=== PATIENT | female | born 1945 | race Caucasian/White ===

== ENCOUNTER 2019-02-03 14:22 | Emergency (ER) | payer MEDICARE, OTHER ==
[~2019-02-03] VITALS: Ht 162.6 cm; Wt 73.9 kg
[2019-02-03 15:00] VITALS: BP 139/59
[2019-02-03 15:01] VITALS: BP 139/59
--- NOTE | 2019-02-03 15:03 | NUR ---
ARRIVAL PATIENT ARRIVED TO [facility]BULATORY, C/O OF LEFT LEG SWELLING AND TENDERNESS, PATIENT STATES SHE JUST RECENTLY FLEW IN FROM [place] AND A [address], UNSURE TO IF SHE HAS A BLOOD CLOT, CAME TO THE ED FOR EVAL.
--- NOTE | 2019-02-03 15:12 | ER.PDOC ---
General Chief Complaint: Extremities Stated Complaint: POSSIBLE BLOOD CLOT Time seen by MD: 15:00 Source: patient, family History of Present Illness Initial Comments Pt with left leg red rounded area that appeared on Sunday, got worse as time went by, slightly better today Onset: last week Recent Injury: No Where: home Severity: mild Exacerbated By: walking movement Relieved By: nothing Allergies: Coded Allergies: Penicillins (Verified Allergy, Unknown, PREST[place], 02/03/19) Home Meds Unable to Obtain Active Prescriptions or Reported Meds Past Medical History Medical History: diabetes, GERD, high cholesterol, hypertension, other Surgical History: hysterectomy, other Social History Smoking: non-smoker Alcohol Use: none Drug Use: none Review of Systems Skin: see HPI All Other Systems: Reviewed and Negative Physical Exam General Appearance: Alert, No Apparent Distress Lower Extremity: nml inspection, non-tender, no pedal edema, tenderness, swelling (left medial aspect of leg with rounded area of redness and tenderness) Joint Exam: joints nml, nml ROM, nml gait/weight bearing Vascular: no vascular compromise, pulses full/equal Neuro/Psych: sensation nml, motor nml, oriented x3, CN's nml as tested, mood/affect nml Skin: color nml, warm/dry, no rash Back/Neck: nml inspection EENT: eyes inspection nml, ENT inspection nml, pharynx nml Respiratory: no resp distress, breath sounds nml CVS: reg rate & rhythm, heart sounds nml Abdomen: non-tender, no organomegaly, no bruit/mass Results/Orders Results/Orders Orders - JOSEPH ANDRE MD Cbc With Auto Diff (02/03/19 15:03) Comprehensive Metabolic Panel (02/03/19 15:03) Creatine Kinase (02/03/19 15:03) PT (02/03/19 15:03) Partial Thromboplastin Time. (02/03/19 15:03) Us Lt Vein U/L (02/03/19 15:03) Vital Signs Date Time Temp Pulse Resp B/P (MAP) Pulse Ox O2 Delivery O2 Flow Rate FiO2 02/03/19 15:01 98.0 75 18 139/59 (85) 98 Room Air 02/03/19 15:00 98.0 75 18 02/03/19 14:58 98.0 75 18 98 Room Air Laboratory Tests Test 02/03/19 15:14 White Blood Count 6.3 10^3/uL (4.5-11.0) Red Blood Count 4.64 10^6/uL (4.00-5.20) Hemoglobin 12.9 g/dL (12.0-15.0) Hematocrit 39.1 % (36.0-46.0) Mean Corpuscular Volume 84.3 fL (78-100) Mean Corpuscular Hemoglobin 27.8 pg (26-34) Mean Corpuscular Hemoglobin Concent 33.0 g/dL (33-37) Red Cell Distribution Width 14.9 % (11.5-14.5) H Platelet Count 298 10^3/uL (150-400) Mean Platelet Volume 7.8 fL (7.8-11.0) Neutrophils (%) (Auto) 65.2 % (41.0-85.0) Lymphocytes (%) (Auto) 23.2 % (24.0-44.0) L Monocytes (%) (Auto) 8.4 % (5.0-12.0) Neutrophils # (Auto) 4.1 10^3/uL (1.8-7.7) Lymphocytes # (Auto) 1.5 10^3/uL (1.0-4.8) Monocytes # (Auto) 0.5 10^3/uL (0.3-0.8) Absolute Immature Granulocyte (auto 0.01 10^3 u/L (0-2) Immature Granulocytes % 0.20 % (0.00-0.50) Eosinophils % 2.4 % (0.0-5.0) Basophils % 0.6 % (0.0-0.2) H Basophils # 0.0 10^3/uL (0.0-0.1) Eosinophil Count 0.2 10^3/uL (0.0-0.2) Prothrombin Time 10.2 SEC (9.4-11.5) Prothrombin Time INR (Non-Therap) 1.0 Activated Partial Thromboplast Time 24.0 SEC (24.67-30.72) Sodium Level 142 mmol/L (132-145) Potassium Level 3.9 mmol/L (3.6-5.2) Chloride Level 105.0 mmol/L (96-109) Carbon Dioxide Level 28.4 mmol/L (20.0-32) Anion Gap 12.5 Blood Urea Nitrogen 21 mg/dL (7-18) H Creatinine 1.02 mg/dL (0.59-1.40) Estimated GFR () 64.6 (>/=60) BUN/Creatinine Ratio 20.0 Glucose Level 92 mg/dL (70-110) Calcium Level 9.1 mg/dL (8.4-10.5) Total Bilirubin 0.4 mg/dL (0.2-1.0) Aspartate Amino Transferase (AST) 23 U/L (0-35) Alanine Aminotransferase (ALT) 28 U/L (12-78) Alkaline Phosphatase 87 U/L (50-136) Total Creatine Kinase 150 U/L (26-192) Total Protein 7.4 g/dL (6.4-8.2) Albumin 3.6 g/dL (3.4-5.0) Globulin 3.8 Departure Time of Disposition: 16:59 Disposition: 01 HOME, SELF-CARE Impression: Primary Impression: Dermatitis Condition: Stable Patient Instructions: Contact Dermatitis, [id number] Referrals: PCP,UNKNOWN (PCP) PRIMARY CARE PROVIDER Scripts Unable to Obtain Active Prescriptions or Reported Meds Duration or Time Spent with Pa: 20 JOSEPH ANDRE MD Feb 03, 2019 15:12
[2019-02-03 15:22] LABS: BASOPHIL % 0.6 % (0.0-0.2); EOSINOPHIL # 0.2 10^3/uL (0.0-0.2); EOSINOPHIL % 2.4 % (0.0-5.0); HEMOGLOBIN 12.9 g/dL (12.0-15.0); LYMPHOCYTES # 1.5 10^3/uL (1.0-4.8); LYMPHOCYTES % 23.2 % (24.0-44.0); MEAN CELL HGB 27.8 pg (26-34); MEAN CORP VOLUME 84.3 fL (78-100); MEAN PLATELET VOLUME 7.8 fL (7.8-11.0); MONOCYTES # 0.5 10^3/uL (0.3-0.8); MONOCYTES % 8.4 % (5.0-12.0); NEUTROPHIL # 4.1 10^3/uL (1.8-7.7); NEUTROPHILS % 65.2 % (41.0-85.0); RED CELL DISTRIBUTION WIDTH 14.9 % (11.5-14.5); WHITE BLOOD CELL 6.3 10^3/uL (4.5-11.0)
[2019-02-03 15:40] LABS: CALCIUM 9.1 mg/dL (8.4-10.5); CARBON DIOXIDE 28.4 mmol/L (20.0-32)
[2019-02-03 17:00] VITALS: BP 125/73
--- NOTE | 2019-02-03 17:08 | DIREP ---
PROCEDURE:US DUPLEX EXTREM VEINS UNILATER/LIMITED-LT COMPARISON:None. INDICATIONS:LEFT sided area of possible DVT TECHNIQUE:The LEFT lower extremity was evaluated utilizing miguel scale images with segmental compression, color Doppler, and spectral Doppler with respiratory variation and augmentation. FINDINGS: Common femoral vein:Patent Superficial femoral vein:Patent Popliteal vein:Patent Posterior tibial vein:Patent Peroneal vein:Patent Greater saphenous vein:Patent Waveforms: Within normal limits. Anterior tibial vein not imaged or could not be visualized. Area of concern in the medial left leg imaged, no focal abnormality clearly seen. CONCLUSION:Negative LEFT lower extremity venous ultrasound for DVT along visualized segments. Dictated by: Reyes Lechuga M.D. on 02/03/2019 at 04:03 PM Read in [place]
== END 2019-02-03 17:11 | disposition home or self-care (01) ==
LOC: ER 14:22
DX: L30.9 Dermatitis, unspecified (principal); K21.9 Gastro-esophageal reflux disease without esophagitis; E78.00 Pure hypercholesterolemia, unspecified; E11.9 Type 2 diabetes mellitus without complications; I10 Essential (primary) hypertension; R79.1 Abnormal coagulation profile; Z88.0 Allergy status to penicillin; Z90.710 Acquired absence of both cervix and uterus
CPT/HCPCS: 36415; 80053; 82550; 85025; 85610; 85730; 99285; 93971